=== PATIENT | male | born 1950 | race Caucasian/White ===

== ENCOUNTER 2016-09-14 11:29 | Inpatient (IN) | payer BC, MEDICARE ==
[~2016-09-14] VITALS: Ht 175.3 cm; Wt 81.3 kg
[2016-09-18] MEDS ORDERED: COZAAR DPS50 MG PO (13:21)
[2016-09-18] MEDS ORDERED: FLONASE 0.05% D16 GM NS (13:21)
[2016-09-18] MEDS ORDERED: ZYRTEC DPS10 MG PO (13:21)
[2016-09-18] MEDS ORDERED: SINGULAIR10 MG PO (13:21)
[2016-09-18] MEDS ORDERED: ADVAIR DIS1 PUFF/DO1 IH (13:21)
[2016-09-18] MEDS ORDERED: VIBRAMYCIN-DPS100 M2 PO (13:22)
[2016-09-18] MEDS ORDERED: LEVAQUIN DPS750 MG PO (13:22)
--- NOTE | 2016-09-20 14:29 | CO ---
ADMIT: 09/14/2016 RM/LOC: 522 [facility] MR#: [id number] [address] [address] EHSAN ALVAREZ [address] [place] [address] Consultation SEX: M AGE: 65 : 1950 DATE OF CONSULTATION: 09/16/2016 ATTENDING PHYSICIAN: Los Bañuelos CONSULTING PHYSICIAN: Felipe Rodas MD REASON FOR CONSULTATION: Pancytopenia, mild. HISTORY OF PRESENT ILLNESS: Mr. Alvarez is a very pleasant, 65-year-old male who was admitted yesterday for a week long of high fevers reaching as high as 104. Associated with these fevers included rigors and sweats as well as difficulty with fatigue and dehydration indicated by dark urine, headache, and dry heaves. He denied having any significant cough or sore throat complaints. When seen in the office on 09/12/2016, his white count was 5.2, hemoglobin 12.6, and platelets 184 mostly within normal limits with a relatively benign differential. Influenza swab was negative and Monospot test was negative. He was started on Augmentin on 09/13/2016, but proceeded to worsen and thus came to the Emergency Department for evaluation. Once there, a CT scan was performed, which clearly indicated a left lower lobe consolidation that was previously difficult to detect those behind the cardiac silhouette on chest x- ray. The patient's blood cultures since hospitalization have remained negative, and he was started on empirical atypical pneumonia coverage given his recent history of camping and report of multiple tick bites. On Levaquin and doxycycline, he has managed to break his fevers earlier this morning and has been afebrile all day today. He does feel much better and reports only developing some diarrhea earlier today. His appetite is better, and he is eating well. No significant shortness of breath or cough to report. REVIEW OF SYSTEMS: A complete review of systems was conducted and found to be negative except for what was mentioned above in the HPI and denial of a skin rash. PAST MEDICAL HISTORY: 1. Allergic rhinitis, seasonal. 2. Allergy-induced asthma, mild, intermittent. 3. Hypertension. PAST SURGICAL HISTORY: Repair of jaw fracture. ALLERGIES: NO KNOWN MEDICAL ALLERGIES. MEDICATIONS: Current medications include: 1. Cozaar 50 mg p.o. daily. 2. Singulair 10 mg daily. 3. Zyrtec 10 mg daily. 4. Dulera 2 puffs daily. 5. Flonase 2 sprays daily. 6. Lovenox 40 mg daily. 7. Levaquin 750 mg IV daily. ADMIT: 09/14/2016 RM/LOC: 522 [facility] MR#: [id number] [facility] [address] [address] PATRICIA EHSAN R [address] [facility] [address] [place] [address] Consultation SEX: M AGE: 65 : 1950 8. Doxycycline 100 mg daily. SOCIAL HISTORY: The patient is , lives here in [place] and is a former smoker. He quit smoking cigars in 1984. Occasional alcohol use reported. 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 No exotic travel or exotic pet exposure. FAMILY HISTORY: Reviewed and noncontributory. PHYSICAL EXAMINATION: VITAL SIGNS: Temperature 98.7, pulse 88, respiratory rate 18, blood pressure 126/72, and saturating 98% on room air. GENERAL: This is an alert, oriented x3 adult male, who is pleasant and is a good historian. He is resting comfortably in bed. HEENT: Pupils are equal, round, and reactive to light. Mouth shows dry mucous membranes, but no oral lesions. NECK: Trachea is midline, but no cervical lymphadenopathy. HEART: Regular rate and rhythm with no murmurs, rubs, or gallops. LUNGS: Decreased breath sounds noted in the left lower base, otherwise no wheezes or crackles elsewhere in the lung har[place]. Normal respiratory effort. ABDOMEN: Soft, nontender to palpation, nondistended. Bowel sounds are positive. No hepatosplenomegaly appreciated. EXTREMITIES: No clubbing, no cyanosis, no edema. MUSCULOSKELETAL: Strength is 5/5 in all extremities with normal range of motion. NEUROLOGIC: Cranial nerves II through XII are grossly intact. SKIN: No obvious rashes or pigmented lesions of concern. PSYCHIATRIC: Mood is euthymic. Affect is full and mood congruent. LABORATORY AND RADIOLOGY: On 09/14/2016; WBC 5.2, hemoglobin 12.6, and platelets 184, procalcitonin 0.61. On 09/15/2016; WBC 3.6, hemoglobin 10.2, and platelets 153. On 09/16/2016; WBC 2.3, hemoglobin 9.5, and platelet 141. Pathology review of blood smear shows leukopenia with absolute lymphocytopenia and normocytic anemia. Red blood cells are morphologically unremarkable. Neutrophils are markedly left shifted with occasional Dohle bodies and toxic granules. No abnormal or immature leukocytes identified. Platelets are morphologically unremarkable. CT chest on 09/15/2016, impression; left lower lobe pneumonia. Images were reviewed with the patient in the exam room. IMPRESSION/RECOMMENDATION: A 65-year-old male with mild pancytopenia and atypical community-acquired pneumonia. Mild pancytopenia. The patient's current course is very consistent with an atypical pneumonia possibly related to recent tick bites as he is responding to doxycycline and Levaquin having broken his fevers earlier this morning. Peripheral smear review also is reassuring for a reactive process secondary to ADMIT: 09/14/2016 RM/LOC: 522 [facility] MR#: [id number] [facility] [address] [place], [place] [address] EHSAN ALVAREZ [address] [place] [address] Consultation SEX: M AGE: 65 : 1950 the current infection. He is clinically improving with no evidence of schistocytes to support a DIC picture. I would recommend no additional workup to a great extent, but would just add on hemolysis labs to tomorrow's a.m. studies and continue to follow while he is inpatient. A routine hospital followup CBC should be obtained, and if still abnormal, I would be happy to see the patient in outpatient followup. I anticipate a slow response as the infection gets under better control with the current antibiotic regimen. No bone marrow biopsy recommended at this time. No culprit medications recommended to be changed. Thank you for this interesting consultation. Please call with any further questions. Total time spent equals 60 minutes. Felipe Rodas MD/ becky JOB #: [id number] CC: Los Bañuelos, Attending Physician Los Bañuelos, Family Physician
--- NOTE | 2016-09-23 08:36 | HP ---
ADMIT: 09/14/2016 RM/LOC: 522 [facility] MR#: [id number] [address] [address] PRIETO GOMEZ [address] [place] [address] History and Physical SEX: M AGE: 65 : 1950 DATE OF SERVICE: 09/15/2016 CHIEF COMPLAINT: Fever of unknown origin. HISTORY OF PRESENT ILLNESS: Prieto is a very pleasant, 65-year-old white male, who presented initially to the outpatient clinic to see my partner, Dr. Garcia on 09/12/2016. At that time, he had already had three days of fever reaching as high as 104 at home. He notes that he had chills, dark urine, fatigue, headache, and loss of appetite. He has had no cough, nausea, sore throat. He stated it felt as if he had bird flu several years ago. On his exam at that time, he is temp was 99.7. His blood pressure was normal. His workup included a CBC with diff, showing a mild anemia and a hemoglobin of 12.6, monos of 8.2%, lymphocytes of 10%, and PMNs of 81%. A flu swab was negative. UA showed a concentrated urine but no evidence of leukocyte esterase, nitrites, or infection, and a Monospot was negative. He was advised to push fluids, observe, and take Tylenol. He continued having fevers despite this, and on 09/13/2016, he called back and talked with Dr. Garcia's nurse and had a prescription for Augmentin sent out. He subsequently presented to the Emergency Department on 09/14 in the afternoon with ongoing fevers as high as 103. At the time of my visit with him today, he denies any chest pain, shortness of breath, cough, nausea, vomiting, diarrhea, abdominal pain, rash, extremity swelling, lymph node swelling. He notes that he has had a couple of ticks in his scalp recently. PAST MEDICAL HISTORY: Remarkable for: 1. Seasonal allergic rhinitis. 2. Allergy-induced asthma, mild intermittent. 3. Hypertension. PAST SURGICAL HISTORY: Repair of a jaw fracture. ALLERGIES: NO KNOWN MEDICAL ALLERGIES. MEDICATIONS: Current medications include: 1. Augmentin 875 mg one tab twice daily. 2. Losartan 50 mg daily. 3. Singulair 10 mg daily. 4. Zyrtec 10 mg daily. 5. Flonase 50 mcg two sprays in each nostril daily. 6. Aspirin 81 mg daily. 7. Proventil two puffs every 4 hours as needed for cough and wheeze. 8. Advair 250/50 one puff twice daily. SOCIAL HISTORY: He is . 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 He is a former smoker. He quit smoking cigars in 1984. He admits to occasional alcohol use. 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 Travel; he denies any recent travel. ADMIT: 09/14/2016 RM/LOC: 522 [facility] MR#: [id number] [facility] [address] [address] PRIETO GOMEZ [address] [place] [address] History and Physical SEX: M AGE: 65 : 1950 FAMILY HISTORY: Noncontributory. REVIEW OF SYSTEMS: As per HPI. All others reviewed and were negative. PHYSICAL EXAMINATION: VITAL SIGNS: His blood pressure is 124/69; pulse 90; respirations 16; temp is 103.0 presently, got up to 103.1 in the overnight. He is 94% on room air. GENERAL: He is awake, alert, actually up at the sink in the exam room. No acute distress. He is pleasant. He is appropriate. HEENT: Normocephalic and atraumatic. NECK: Supple. No lymphadenopathy. No thyromegaly. HEART: Regular rate and rhythm. No murmurs, gallops, or rubs. LUNGS: Clear to auscultation bilaterally. ABDOMEN: Soft, nontender, nondistended. No rebound, guarding, or masses. LABORATORY AND X-RAY DATA: CBC shows a hemoglobin of 12.6, white count of 5.2, hematocrit 35.4, platelets of 184. His differential is unremarkable. CMP shows a mildly depressed potassium at 3.3, glucose 166. Liver enzymes are within normal limits. Procalcitonin is 0.61, lactic acid is 0.9. Chest x-ray shows left-sided basilar atelectasis, but no infiltrates. Blood cultures are 2 of 2 negative at this time. A repeat CBC this morning, shows his white count down to 3.6, hemoglobin of 10.2, and a platelet count of 153. His sedimentation rate was 64. ASSESSMENT: 1. Fever of unknown origin. 2. Mild intermittent allergy induced asthma. 3. Allergic rhinitis. 4. Hypertension. 5. Previous history of tobacco abuse. PLAN: The etiology of his fevers is uncertain with his tick bites. The Emergency Department did send labs for Lyme disease, [place] spotted fever, and Francisella tularensis. I am going to order a CT of his chest, abdomen, and pelvis to ensure that there is nothing inflammatory or lymphadenopathy. We will ask for an Infectious Disease consult. We will replace his potassium. Further management will be dependent on his clinical course. Los Bañuelos MD/ becky JOB #: [id number] CC: Los Bañeulos, Attending Physician Los Bañuelos, Family Physician
--- NOTE | 2016-09-23 08:36 | DS ---
ADMIT: 09/14/2016 RM/LOC: 522 [facility] MR#: [id number] [address] [facility] [address] [place] [address] PRIETO ALVAREZ [address] [place] [address] Discharge Summary SEX: M AGE: 65 : 1950 ADMISSION DATE: 09/14/2016 DISCHARGE DATE: 09/17/2016 ADMITTING DIAGNOSES: 1. Fever of unknown origin. 2. Mild intermittent allergy induced asthma. 3. Allergic rhinitis. 4. Hypertension. 5. Previous history of tobacco abuse. DISCHARGE DIAGNOSES: 1. Left lower lobe community-acquired pneumonia. 2. Leukopenia. 3. Anemia. 4. Mild intermittent allergy induced asthma. 5. Allergic rhinitis. 6. Hypertension. 7. Previous history of tobacco abuse. CONSULTATIONS: 1. Alla Daley MD, Infectious Disease, consulted on 09/15/2016. 2. Felipe Rodas MD, Hematology/Oncology, consulted on 09/16/2016. HISTORY AND PHYSICAL EXAM: Mr. Alvarez is a very pleasant, 65-year-old, white male who presented initially to the outpatient clinic on 09/12/2016 with three days of fever reaching as high as 104 at home. He had been having chills, dark urine, fatigue, headache, and loss of appetite, but denied any cough, nausea, sore throat, vomiting, or diarrhea. He stated it felt as if he had the bird flu like he had several years prior. At the time of exam in the clinic, his temp was 99.7 on Tylenol. Workup included a mild anemia with a hemoglobin of 12.6, monos of 8.2, lymphocytes 10%, PMNs of 81%. Flu swab was negative. UA was unremarkable. Monospot was negative. He was advised to push fluids and take Tylenol. He called back to clinic on 09/13/2016 and a prescription for Augmentin was sent out. He started taking this, but it caused nausea and he subsequently presented to the ER on 09/14 with ongoing fevers as high as 103. Initial workup showed him to be febrile with hemodynamic stable vitals. His exam was unremarkable. White count was 5.2, hemoglobin was 12.6. He had a mildly depressed potassium. Procal was negative. Lactic acid was negative. Chest x-ray showed a left-sided basilar atelectasis, but no zackary infiltrate. He was subsequently admitted to the hospital for further observation and workup. HOSPITAL COURSE: Subsequent workup with a CT of his chest, abdomen, and pelvis did show a left lower lobe infiltrate. Dr. Daley with Infectious Disease was consulted to ensure that there were no additional diagnoses contributing to this. HIV test was negative. Monospot was negative. Viral respiratory panel was negative. Urinalysis with micro was negative. Prieto relayed a history of tick bites in his scalp. Several tick borne illness labs are pending at the time of discharge, so he is already on Doxycycline. He was ADMIT: 09/14/2016 RM/LOC: 522 [facility] MR#: [id number] [facility] [address] [address] SEANPRIETO ALNE Heather [address] [place] [address] Discharge Summary SEX: M AGE: 65 : 1950 started initially on Rocephin and Zithromax for the pneumonia. This was switched over to Levaquin and doxycycline on 09/16/2016. During his hospitalization, his white count got down to 2.3 and his hemoglobin down as low as 9.5. Dr. Rodas with Infectious Disease was consulted. A peripheral smear was done and was negative for any blasts or immature cells. Dr. Rodas felt that his low counts were all reactive secondary to his infection and as such, did not recommend any bone marrow biopsy, but did recommend close followup to ensure his CBC recovers in several weeks following this illness. Throughout the day, 09/16/2016, he remained afebrile and into the morning of 09/17/2016, he was afebrile. He was feeling much better. He was not requiring any oxygen and was able to take p.o. without difficulty. A decision was made to discharge him to home with further management as an outpatient. DISPOSITION: He will be discharged to home. CONDITION: Discharge condition is good. DISCHARGE MEDICATIONS: Discharge medications will include: 1. Losartan 50 mg p.o. daily. 2. Zyrtec 10 mg daily. 3. Advair 250/50 one puff b.i.d. 4. Singulair 10 mg daily. 5. Flonase 2 sprays in each nostril daily. 6. Levaquin 750 mg p.o. daily for an additional eight days. 7. Doxycycline 100 mg b.i.d. for an additional eight days. This will give him a full 10 day course of antibiotics. FOLLOW UP: I will plan on seeing him back in my clinic in two weeks for a chest x-ray and a CBC at that time, to ensure his infiltrate has improved and that his blood counts are normalizing. Los Bañuelos MD/ malu JOB #: [id number] CC: Los Bañuelos MD, Attending Physician Los Bañuelos MD, Family Physician
--- NOTE | 2016-09-25 14:39 | ER ---
ADMIT: 09/14/2016 RM/LOC: ER [facility] MR#: [id number] [address] [address] EHSAN GOMEZ [address] [place] [address] Emergency Room Report SEX: M AGE: 65 : 1950 DATE: 09/14/2016 ADDENDUM: CHIEF COMPLAINT: Fever. HISTORY OF PRESENT ILLNESS: This is a 65-year-old male, who developed a fever just this last Friday. He saw Dr. Garcia on . They did lab work, and urine, everything was negative including mono and influenza. He was discharged from the office. They called back on Friday, said he was not feeling any better at all. [facility] He just has had extreme nausea for the last 3 days. When trying take his medications or try to eat at all, he immediately vomits it back up. His temp has been as high as 103 at home. Upon arrival here, it is 103.1. COURSE IN EMERGENCY ROOM: I did a CBC, CMP, lactic acid, procalcitonin and blood cultures x2. Also, ordered Lyme disease, [place] spotted fever, testing for ehrlichiosis, tularemia, and [place] virus. Gave him Tylenol 1 g IV here for body aches and fever that has improved his body aches significantly. Also, gave him doxycycline 100 mg p.o. I did speak with Dr. Koehler at 1435 hours regarding the patient, keeping him for hydration and fever control. He agrees to admit. IMPRESSION: 1. Fever, unknown source. 2. Recent tick bites. 3. Nausea, vomiting, and dehydration. DISPOSITION: Stable at admit BALBINA Clement / Brandon Peterson MD / becky JOB #: [id number] CC: Vinayak Rangel MD, Attending Physician
--- NOTE | 2016-10-07 15:38 | CO ---
ADMIT: 09/14/2016 RM/LOC: 522 [facility] MR#: [id number] [address] [address] EHSAN ALVAREZ [address] [place] [address] Consultation SEX: M AGE: 65 : 1950 DATE OF CONSULTATION: 09/15/2016 ATTENDING PHYSICIAN: Los Bañuelos CONSULTING PHYSICIAN: Alla Daley MD REASON FOR CONSULT: Fever of unknown origin. Thank you, Dr. Bañuelos, for the consult and involving me in this patient's care. HISTORY OF PRESENT ILLNESS: Mr. Alvarez is a 65-year-old man, who was initially seen by Dr. Garcia on September 12 for persistent fevers since September 10, 2016. The patient reported high-grade fevers of around 104 at home associated with chills and fatigue and loss of appetite. He denied any cough or any other GI symptoms. 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 Flu swab was negative. He was prescribed Augmentin by Dr. Garcia, which he took and started having vomiting and nausea, hence presented to the ER for further management. In the ER, he again had a fever of 103. He recently went camping and reported many tick bites while outdoors. PAST MEDICAL HISTORY: Allergic rhinitis, asthma, hypertension. PAST SURGICAL HISTORY: Repair of jaw fracture. ALLERGIES: NO KNOWN DRUG ALLERGIES. OUTPATIENT MEDICATIONS: Reviewed. SOCIAL HISTORY: He is . He denies any smoking or recreational drug use. Drinks alcohol occasionally. 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 FAMILY HISTORY: Significant for heart disease in his father. REVIEW OF SYSTEMS: A 10-point review of systems negative except as mentioned in HPI. PHYSICAL EXAMINATION: VITAL SIGNS: Current temperature 101, T-max 103.1, heart rate 90, respirations 16, blood pressure 124/69, and 95% on room air. GENERAL: No acute distress. HEENT. Head, normocephalic and atraumatic. Extraocular movements intact. LYMPH: No palpable anterior/posterior cervical or supraclavicular lymphadenopathy. CHEST: Clear to auscultation bilaterally. No wheezes, rales, or rhonchi. CARDIOVASCULAR: S1 and S2 heard. Regular rate and rhythm. ABDOMEN: Soft, nontender, and nondistended. Active bowel sounds. SKIN: No rash noted on exposed skin. PSYCH: Normal affect. Memory intact. DATA REVIEW: CBC today shows white count of 3.6, hemoglobin 10.2, and ADMIT: 09/14/2016 RM/LOC: 522 [facility] MR#: [id number] [address] [place] [address] EHSAN ALVAREZ [address] [place] [address] Consultation SEX: M AGE: 65 : [address] scan of the chest, abdomen, pelvis was done, which showed left lower lobe pneumonia and postop changes in the ascending colon. ASSESSMENT AND PLAN: 1. Fever likely secondary to community-acquired pneumonia. Given the presence of birds and dogs around him, it is likely atypical pneumonia. At this time, I will start him on ceftriaxone 1 g once daily and azithromycin 500 mg once daily. I will also send urine Legionella, urine streptococcal antigen, and chlamydia antibody panel. We will monitor him closely. He is hemodynamically stable at this time. 2. Asthma. 3. Hypertension. Thank you for the consult. I will continue to follow the patient. Alla Daley MD/ becky JOB #: [id number] CC: Los Bañuelos, Attending Physician Los Bañuelos, Family Physician
== END 2016-09-17 14:35 | disposition home or self-care (01) | DRG 194 ==
LOC: ER 11:29 → 5MS 14:33
PROVIDERS: ADMIT Family Medicine
DX: J18.9 Pneumonia, unspecified organism (principal); D61.818 Other pancytopenia; E86.0 Dehydration; J45.20 Mild intermittent asthma, uncomplicated; I10 Essential (primary) hypertension; Z79.82 Long term (current) use of aspirin; Z87.891 Personal history of nicotine dependence